=== PATIENT | female | born 1985 | race Caucasian/White ===

== ENCOUNTER 2017-11-17 11:26 | Emergency (ER) | payer OTHER ==
[2017-11-17] MEDS ORDERED: IBUPROFEN 600 MG TAB PO (15:30)
[2017-11-17] MEDS: KETOROLAC 60 MG INJ IM (15:44)
== END 2017-11-17 17:41 | disposition home or self-care (01) ==
LOC: FTE 11:26
DX: S90.511A Abrasion, right ankle, initial encounter (principal); F17.210 Nicotine dependence, cigarettes, uncomplicated; W18.39XA Other fall on same level, initial encounter; Y92.812 Truck as the place of occurrence of the external cause
CPT/HCPCS: 29515; 73130-RT; 73562; 73610-RT; 73630; 96372; 99284-25

== ENCOUNTER 2017-12-25 12:28 | Emergency (ER) | payer OTHER ==
[2017-12-25] MEDS: HYDROCODONE/APAP (5/325) TAB PO (18:32)
== END 2017-12-25 21:00 | disposition home or self-care (01) ==
LOC: FTE 12:28
DX: S82.401D Unspecified fracture of shaft of right fibula, subsequent encounter for closed fracture with routine healing (principal); F17.210 Nicotine dependence, cigarettes, uncomplicated; W01.0XXD Fall on same level from slipping, tripping and stumbling without subsequent striking against object, subsequent encounter
CPT/HCPCS: 73590; 73610-RT; 73630; 99283-25

== ENCOUNTER 2019-04-21 00:16 | Emergency (ER) | payer OTHER ==
[2019-04-21] MEDS: HYDROCODONE/APAP (5/325) TAB PO (01:29)
[2019-04-21 01:35] LABS: ADD UMIC YES; UR ASCORBIC ACID NEGATIVE (NEGATIVE); UR BACTERIA FEW /HPF (NONE SEEN); UR BILIRUBIN (Dip) NEGATIVE (NEGATIVE); UR BLOOD (Dip) 2+ mg/dL (NEGATIVE); UR CLARITY CLOUDY (CLEAR); UR COLOR YELLOW (YELLOW); UR GLUCOSE (Dip) NEGATIVE (NEGATIVE); UR KETONES (Dip) NEGATIVE (NEGATIVE); UR LEUKOCYTE ESTERASE (Dip) NEGATIVE Leu/ul (NEGATIVE); UR MUCUS FEW /HPF (NONE SEEN); UR NITRITE (Dip) NEGATIVE (NEGATIVE); UR RBC 4 /HPF (0-5); UR SPECIFIC GRAVITY (Dip) 1.019 (1.003-1.030); UR SQUAMOUS EPITHELIAL CELL MODERATE /HPF (FEW); UR TOTAL PROTEIN (Dip) NEGATIVE (NEGATIVE); UR UROBILINOGEN (Dip) NEGATIVE (NEGATIVE); UR WBC 6 /HPF (0-5)
== END 2019-04-21 03:57 | disposition home or self-care (01) ==
LOC: FTE 00:16
DX: S06.0X0A Concussion without loss of consciousness, initial encounter (principal); S10.93XA Contusion of unspecified part of neck, initial encounter; S00.93XA Contusion of unspecified part of head, initial encounter; S60.221A Contusion of right hand, initial encounter; F17.210 Nicotine dependence, cigarettes, uncomplicated; Y00.XXXA Assault by blunt object, initial encounter
CPT/HCPCS: 70450; 72125; 73030-RT; 73130-RT; 81001; 81025; 99284-25